=== PATIENT | male | born 1985 | race Two or more races ===

== ENCOUNTER 2022-10-08 14:09 | Inpatient (IN) | payer OTHER ==
[~2022-10-08] VITALS: Ht 177.8 cm; Wt 64.4 kg
[2022-10-11] MEDS ORDERED: K-PHOS ORIGINA500 MG PO (12:38)
[2022-10-11] MEDS ORDERED: SLOW-MAG64 M1 PO (12:39)
== END 2022-10-11 13:09 | disposition home or self-care (01) | DRG 722 ==
LOC: ER 14:09 → MEDJ 18:38
PROVIDERS: ADMIT Internal Medicine Hematology & Oncology; ATTEND Internal Medicine Hematology & Oncology
PROC: BW21YZZ Computerized Tomography (CT Scan) of Abdomen and Pelvis using Other Contrast (ICD-10-PCS; principal; 2022-10-08)
PROC: BW24ZZZ Computerized Tomography (CT Scan) of Chest and Abdomen (ICD-10-PCS; 2022-10-09)
DX: C62.12 Malignant neoplasm of descended left testis (principal); D61.810 Antineoplastic chemotherapy induced pancytopenia; C77.1 Secondary and unspecified malignant neoplasm of intrathoracic lymph nodes; C78.00 Secondary malignant neoplasm of unspecified lung; N17.9 Acute kidney failure, unspecified; J98.2 Interstitial emphysema; T45.1X5A Adverse effect of antineoplastic and immunosuppressive drugs, initial encounter; E86.0 Dehydration; E87.6 Hypokalemia; D63.0 Anemia in neoplastic disease